=== PATIENT | male | born 1990 | race Caucasian/White ===

== ENCOUNTER 2021-02-11 10:41 | Emergency (ER) | payer MEDICARE ==
[~2021-02-11] VITALS: Ht 167.6 cm; Wt 80.3 kg
[~2021-02-11 10:41] MED LIST: KEFLEX500 MG PO
--- OUTSIDE RECORDS SUMMARY | 2021-02-11 10:50 | XMS ---
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 Usman has no Care Guidelines for this patient. Luis VISIT COUNT (12 MO.) 1 SHANICE Fitch TOTAL 1 NOTE: Visits indicate total known visits. ED/C VISIT TRACKING (12 MO.) 02/11/2021 10:42 SHANICE [facility] [place] TYPE: Emergency COMPLAINT: - CHEST PAIN, L LEG SWOLLEN INPATIENT VISIT TRACKING (12 MO.) No inpatient visits to display in this time frame [email or web address]
--- NOTE | 2021-02-12 13:06 | EKG ---
[facility] [address] [place] [address] Signed Normal sinus rhythm with sinus arrhythmia Normal ECG No previous ECGs available Confirmed by ROSAMARIA ALVAREZ MD ([id number] on 02/12/2021 1:06:05 PM Electronically Signed By: ROSAMARIA ALVAREZ MD 02/12/21 1306 PATIENT NAME: MIKKIWALTER SHUBHAMABDOULAYE Electrocardiogram DATE OF : 89 PHYSICIAN: ROSAMARIA ALVAREZ MD REPORT #: [id number] REPORT IS CONFIDENTIAL AND NOT TO BE RELEASED WITHOUT AUTHORIZATION
== END 2021-02-11 12:56 | disposition home or self-care (01) ==
LOC: ED 10:41
DX: R07.9 Chest pain, unspecified (principal); J45.909 Unspecified asthma, uncomplicated; F17.200 Nicotine dependence, unspecified, uncomplicated
CPT/HCPCS: 71045; 80053; 84484; 85025; 85379; 93005; 93010; 99285-25